=== PATIENT | female | born 1950 | race Caucasian/White ===

== ENCOUNTER 2016-08-07 10:06 | Inpatient (IN) | payer BC ==
[2016-08-07] MEDS ORDERED: SODIUM CHLORIDE 0.9% 500 ML IV STA ×2 (10:12→12:02)
[2016-08-07] MEDS ORDERED: SODIUM CHLORIDE 0.9% 1,000 ML IV STA ×3 (10:12→12:02)
--- NOTE | 2016-08-07 10:13 | ED ---
General Adult HPI - General Stated complaint: weakness Time Seen by Provider: 08/07/16 10:11 Source: RN notes reviewed, old records reviewed - History of Present Illness Initial comments: This is a 65-year-old female here for evaluation of altered mental status. Patient unable to give history or history at this time secondary to mental state. Patient's is at bedside to provide history, significant medical history is consistent for uterine cancer with metastasis. Patient coming in for altered mental status today. She is having continued abdominal pain. An incontinence. - Related Data Home Medications Medication Instructions Recorded Confirmed Morphine Oral Soln [Roxanol Oral 20 mg PO Q4HR PRN 08/07/16 08/07/16 Soln Conc 20MG/ML] Morphine Sulfate Ir [MSIR] 30 mg PO Q4HR PRN 08/07/16 08/07/16 fentaNYL 100MCG/HR PATCH 1 patch TRANSDERM Q72H 08/07/16 08/07/16 [Duragesic 100MCG/HR] fentaNYL 50MCG/HR PATCH [Duragesic 1 patch TRANSDERM Q72H 08/07/16 08/07/16 50MCG/HR] Allergies Allergy/AdvReac Type Severity Reaction Status Date / Time Penicillins Allergy Rash/Hives Verified 06/25/16 15:27 codeine AdvReac Nausea & Verified 06/25/16 15:27 Vomiting/dizzyness oxycodone AdvReac Hallucinati Verified 08/07/16 11:30 ons Review of Systems ROS Statement: Those systems with pertinent positive or pertinent negative responses have been documented in the HPI. ROS Other: All systems not noted in ROS Statement are negative. Past Medical History Past Medical History: Cancer, Fibromyalgia, Hyperlipidemia, Osteoarthritis (OA) Additional Past Medical History / Comment(s): FIBROMYALGIA, STAGE 4 ENDOMETRIAL( UTERINE) CANCER, HAD CHEMO-LAST TX WAS MAY 08,PT STATED "GOING TO START RADIATION SOON".PT STATED LOST 45-50# SINCE DECEMBER 2015. BRONCHITIS, BEGINNINGS OF CATARACTS History of Any Multi-Drug Resistant Organisms: None Reported Past Surgical History: Cholecystectomy, Tonsillectomy Additional Past Surgical History / Comment(s): COLONOSCOPY, HYSTEROSCOPY W/ D&C Past Anesthesia/Blood Transfusion Reactions: No Reported Reaction Past Psychological History: No Psychological Hx Reported Smoking Status: Former smoker Past Alcohol Use History: Occasional Additional Past Alcohol Use History / Comment(s): STATED WOULD HAVE AN OCC SOCIAL CIGARETTE, BUT QUIT 30 YEARS AGO Past Drug Use History: None Reported Additional Drug Use History / Comment(s): Pt states she occassionally would have social cigarette - Past Family History Mother Family Medical History: Deep Vein Thrombosis (DVT) Father Family Medical History: Cancer Additional Family Medical History / Comment(s): MELANOMA Brother(s) Family Medical History: Pulmonary Embolus General Exam Limitations: altered mental status General appearance: alert, in no apparent distress Head exam: Present: atraumatic, normocephalic, normal inspection Eye exam: Present: normal appearance, PERRL, EOMI. Absent: scleral icterus, conjunctival injection, periorbital swelling ENT exam: Present: mucous membranes dry Neck exam: Present: normal inspection. Absent: tenderness, meningismus, lymphadenopathy Respiratory exam: Present: normal lung sounds bilaterally. Absent: respiratory distress, wheezes, rales, rhonchi, stridor Cardiovascular Exam: Present: regular rate, normal rhythm, normal heart sounds. Absent: systolic murmur, diastolic murmur, rubs, gallop, clicks GI/Abdominal exam: Present: soft, normal bowel sounds. Absent: distended, tenderness, guarding, rebound, rigid Extremities exam: Present: normal inspection, full ROM, normal capillary refill. Absent: tenderness, pedal edema, joint swelling, calf tenderness Back exam: Present: normal inspection Neurological exam: Present: alert, oriented X3, CN II-XII intact Psychiatric exam: Present: normal affect, normal mood Skin exam: Present: warm, dry, intact, normal color. Absent: rash Course Vital Signs 08/07/16 10:09 Temperature 97.0 F L Respiratory 18 Rate Blood Pressure 123/58 O2 Sat by Pulse 91 L Oximetry - Reevaluation(s) Reevaluation #1: 08/07/16 12:27 Patient showing no critical improvement in mental state at this time EKG Findings - EKG Comments: EKG Findings:: EKG shows sinus rate of 93, TN 252, QRS 136, QTC 435 Medical Decision Making - Medical Decision Making 65 female with weakness and altered mental status. Patient is dehydrated, and suffered with the urinary tract infection. Patient be admitted for control throat infection IV antibiotics and rehydration resuscitation, electrolyte R replacement - Lab Data Result diagrams: 08/07/16 10:20 08/07/16 10:20 Lab Results 08/07/16 08/07/16 08/07/16 Range/Units 10:20 10:20 10:20 WBC 7.0 (3.8-10.6) k/uL RBC 2.32 L (3.80-5.40) m/uL Hgb 7.4 L (11.4-16.0) gm/dL Hct 22.3 L (34.0-46.0) % MCV 96.1 D (80.0-100.0) fL MCH 31.7 (25.0-35.0) pg MCHC 33.0 (31.0-37.0) g/dL RDW 18.3 H (11.5-15.5) % Plt Count 131 L D (150-450) k/uL Neutrophils % 89 % Lymphocytes % 3 % Monocytes % 6 % Eosinophils % 0 % Basophils % 0 % Neutrophils # 6.2 (1.3-7.7) k/uL Lymphocytes # 0.2 L (1.0-4.8) k/uL Monocytes # 0.5 (0-1.0) k/uL Eosinophils # 0.0 (0-0.7) k/uL Basophils # 0.0 (0-0.2) k/uL Hypochromasia Slight Poikilocytosis Slight Anisocytosis Slight Macrocytosis Slight PT (9.0-12.0) sec INR (<1.1) APTT (22.0-30.0) sec Sodium 133 L (137-145) mmol/L Potassium 3.2 L (3.5-5.1) mmol/L Chloride 93 L (98-107) mmol/L Carbon Dioxide 33 H (22-30) mmol/L Anion Gap 7 mmol/L BUN 12 (7-17) mg/dL Creatinine 0.57 (0.52-1.04) mg/dL Est GFR (MDRD) Af Amer >60 (>60 ml/min/1.73 sqM) Est GFR (MDRD) Non-Af >60 (>60 ml/min/1.73 sqM) Glucose 109 H (74-99) mg/dL POC Glucose (mg/dL) (75-99) mg/dL POC Glu Power Bender Operator ID Plasma Lactic Acid Cade 1.9 (0.7-2.0) mmol/L Calcium 11.8 H (8.4-10.2) mg/dL Phosphorus 2.4 L (2.5-4.5) mg/dL Magnesium 1.2 L (1.6-2.3) mg/dL Total Bilirubin 1.0 (0.2-1.3) mg/dL AST 41 H (14-36) U/L ALT 34 (9-52) U/L Alkaline Phosphatase 121 (38-126) U/L Ammonia (<30) umol/L Troponin I (0.000-0.034) ng/mL Total Protein 5.8 L (6.3-8.2) g/dL Albumin 2.7 L (3.5-5.0) g/dL Urine Color Urine Appearance (Clear) Urine pH (5.0-8.0) Ur Specific Phillips (1.001-1.035) Urine Protein (Negative) Urine Glucose (UA) (Negative) Urine Ketones (Negative) Urine Blood (Negative) Urine Nitrate (Negative) Urine Bilirubin (Negative) Urine Urobilinogen (<2.0) mg/dL Ur Leukocyte Esterase (Negative) Urine RBC (0-5) /hpf Urine WBC (0-5) /hpf Urine WBC Clumps (None) /hpf Ur Squamous Epith Cells (0-4) /hpf Urine Mucus (None) /hpf Influenza Type A RNA (Not Detectd) Influenza Type B (PCR) (Not Detectd) 08/07/16 08/07/16 08/07/16 Range/Units 10:20 10:20 10:20 WBC (3.8-10.6) k/uL RBC (3.80-5.40) m/uL Hgb (11.4-16.0) gm/dL Hct (34.0-46.0) % MCV (80.0-100.0) fL MCH (25.0-35.0) pg MCHC (31.0-37.0) g/dL RDW (11.5-15.5) % Plt Count (150-450) k/uL Neutrophils % % Lymphocytes % % Monocytes % % Eosinophils % % Basophils % % Neutrophils # (1.3-7.7) k/uL Lymphocytes # (1.0-4.8) k/uL Monocytes # (0-1.0) k/uL Eosinophils # (0-0.7) k/uL Basophils # (0-0.2) k/uL Hypochromasia Poikilocytosis Anisocytosis Macrocytosis PT 11.5 (9.0-12.0) sec INR 1.2 (<1.1) APTT 20.7 L (22.0-30.0) sec Sodium (137-145) mmol/L Potassium (3.5-5.1) mmol/L Chloride (98-107) mmol/L Carbon Dioxide (22-30) mmol/L Anion Gap mmol/L BUN (7-17) mg/dL Creatinine (0.52-1.04) mg/dL Est GFR (MDRD) Af Amer (>60 ml/min/1.73 sqM) Est GFR (MDRD) Non-Af (>60 ml/min/1.73 sqM) Glucose (74-99) mg/dL POC Glucose (mg/dL) (75-99) mg/dL POC Glu Power Bender Operator ID Plasma Lactic Acid Cade (0.7-2.0) mmol/L Calcium (8.4-10.2) mg/dL Phosphorus (2.5-4.5) mg/dL Magnesium (1.6-2.3) mg/dL Total Bilirubin (0.2-1.3) mg/dL AST (14-36) U/L ALT (9-52) U/L Alkaline Phosphatase (38-126) U/L Ammonia <9 (<30) umol/L Troponin I 0.073 H* (0.000-0.034) ng/mL Total Protein (6.3-8.2) g/dL Albumin (3.5-5.0) g/dL Urine Color Urine Appearance (Clear) Urine pH (5.0-8.0) Ur Specific Phillips (1.001-1.035) Urine Protein (Negative) Urine Glucose (UA) (Negative) Urine Ketones (Negative) Urine Blood (Negative) Urine Nitrate (Negative) Urine Bilirubin (Negative) Urine Urobilinogen (<2.0) mg/dL Ur Leukocyte Esterase (Negative) Urine RBC (0-5) /hpf Urine WBC (0-5) /hpf Urine WBC Clumps (None) /hpf Ur Squamous Epith Cells (0-4) /hpf Urine Mucus (None) /hpf Influenza Type A RNA (Not Detectd) Influenza Type B (PCR) (Not Detectd) 08/07/16 08/07/16 08/07/16 Range/Units 10:30 10:53 10:53 WBC (3.8-10.6) k/uL RBC (3.80-5.40) m/uL Hgb (11.4-16.0) gm/dL Hct (34.0-46.0) % MCV (80.0-100.0) fL MCH (25.0-35.0) pg MCHC (31.0-37.0) g/dL RDW (11.5-15.5) % Plt Count (150-450) k/uL Neutrophils % % Lymphocytes % % Monocytes % % Eosinophils % % Basophils % % Neutrophils # (1.3-7.7) k/uL Lymphocytes # (1.0-4.8) k/uL Monocytes # (0-1.0) k/uL Eosinophils # (0-0.7) k/uL Basophils # (0-0.2) k/uL Hypochromasia Poikilocytosis Anisocytosis Macrocytosis PT (9.0-12.0) sec INR (<1.1) APTT (22.0-30.0) sec Sodium (137-145) mmol/L Potassium (3.5-5.1) mmol/L Chloride (98-107) mmol/L Carbon Dioxide (22-30) mmol/L Anion Gap mmol/L BUN (7-17) mg/dL Creatinine (0.52-1.04) mg/dL Est GFR (MDRD) Af Amer (>60 ml/min/1.73 sqM) Est GFR (MDRD) Non-Af (>60 ml/min/1.73 sqM) Glucose (74-99) mg/dL POC Glucose (mg/dL) 118 H (75-99) mg/dL POC Glu Power Bender Operator ID Tammie Morris Plasma Lactic Acid Cade (0.7-2.0) mmol/L Calcium (8.4-10.2) mg/dL Phosphorus (2.5-4.5) mg/dL Magnesium (1.6-2.3) mg/dL Total Bilirubin (0.2-1.3) mg/dL AST (14-36) U/L ALT (9-52) U/L Alkaline Phosphatase (38-126) U/L Ammonia (<30) umol/L Troponin I (0.000-0.034) ng/mL Total Protein (6.3-8.2) g/dL Albumin (3.5-5.0) g/dL Urine Color Light Yellow Urine Appearance Cloudy H (Clear) Urine pH 6.5 (5.0-8.0) Ur Specific Phillips 1.006 (1.001-1.035) Urine Protein Negative (Negative) Urine Glucose (UA) Negative (Negative) Urine Ketones Negative (Negative) Urine Blood Trace H (Negative) Urine Nitrate Negative (Negative) Urine Bilirubin Negative (Negative) Urine Urobilinogen <2.0 (<2.0) mg/dL Ur Leukocyte Esterase Large H (Negative) Urine RBC 5 (0-5) /hpf Urine WBC >182 H (0-5) /hpf Urine WBC Clumps Rare H (None) /hpf Ur Squamous Epith Cells 6 H (0-4) /hpf Urine Mucus Rare H (None) /hpf Influenza Type A RNA Not Detected (Not Detectd) Influenza Type B (PCR) Not Detected (Not Detectd) - Radiology Data Radiology results: report reviewed (CT brain negative for acute disease, chest x -ray chronic changes, metastatic disease), image reviewed Disposition Clinical Impression: Altered mental status, Delirium due to general medical condition, Dehydration, UTI (urinary tract infection), Hypomagnesemia, Hypokalemia Disposition: ADMITTED IP TO THIS [facility] Condition: Fair Referrals: Nils Agrawal DO [Primary Care Provider] - 1-2 days
[2016-08-07 10:44] LABS: Glucose,Whole Blood 118 mg/dL (75-99)
[2016-08-07 11:07] LABS: ALT 34 U/L (9-52); AST 41 U/L (14-36); Alkaline Phosphatase 121 U/L (38-126); Anion Gap 7 mmol/L; Blood Urea Nitrogen 12 mg/dL (7-17); Calcium 11.8 mg/dL (8.4-10.2); Carbon Dioxide 33 mmol/L (22-30); Chloride 93 mmol/L (98-107); Glucose 109 mg/dL (74-99); Magnesium 1.2 mg/dL (1.6-2.3); Non-African American GFR(MDRD) >60 (>60 ml/min/1.73 sqM); Phosphorous 2.4 mg/dL (2.5-4.5); Potassium 3.2 mmol/L (3.5-5.1); Sodium 133 mmol/L (137-145); Total Protein 5.8 g/dL (6.3-8.2)
[2016-08-07 11:11] LABS: Anisocytosis Slight; Basophils % (A) 0 %; CH 32.4; CHCM 33.7; Eosinophils % (A) 0 %; HCT 22.3 % (34.0-46.0); HDW 3.82; HGB 7.4 gm/dL (11.4-16.0); Hypochromasia Slight; Luc # (Auto) 0.08; Luc % (Auto) 1; Lymphocytes # (A) 0.2 k/uL (1.0-4.8); Lymphocytes % (A) 3 %; MCH 31.7 pg (25.0-35.0); Macrocytosis Slight; Mean Platelet Volume 7.8; Monocytes # (A) 0.5 k/uL (0-1.0); Monocytes % (A) 6 %; Neutrophils # (A) 6.2 k/uL (1.3-7.7); Neutrophils % (A) 89 %; Poikilocytosis Slight; RBC 2.32 m/uL (3.80-5.40); RDW 18.3 % (11.5-15.5); WBC (Perox) 7.26
[2016-08-07 11:16] LABS: INR 1.2 (<1.1); Prothrombin Time 11.5 sec (9.0-12.0)
[2016-08-07 11:20] LABS: MCV 96.1 fL (80.0-100.0)
[2016-08-07 11:26] LABS: Appearance,Urine Cloudy (Clear); Bilirubin,Urine Negative (Negative); Glucose,Urine (UA) Negative (Negative); Ketones,Urine Negative (Negative); Leukocyte Esterase,Urine Large (Negative); Mucus,Urine Rare /hpf; Nitrite,Urine Negative (Negative); PH, Urine 6.5 (5.0-8.0); Particle Count 5982; Protein,Urine Negative (Negative); RBC,Urine 5 /hpf (0-5); Specific Gravity,Urine 1.006 (1.001-1.035); Squamous Epithelial Cell,Urine 6 /hpf (0-4); UA Billing (MACRO vs. MICRO) MICRO; Urobilinogen,Urine <2.0 mg/dL (<2.0); WBC,Urine >182 /hpf (0-5)
[2016-08-07 11:36] LABS: Partial Thromboplastin Time 20.7 sec (22.0-30.0)
--- NOTE | 2016-08-07 11:56 | CT ---
EXAMINATION TYPE: CT brain wo con DATE OF EXAM: 08/07/2016 11:50 AM COMPARISON: NONE HISTORY: confusion CT DLP: 851.3 mGycm Automated exposure control for dose reduction was used. FINDINGS: There is no acute intracranial hemorrhage, mass effect, or midline shift identified. Changes of chronic sinusitis noted. There is mild to moderate generalized degenerative change. No mid line shift or mass effect. Calvarium intact. Small osteoma along the inner table left temporal bone. IMPRESSION: No acute intracranial hemorrhage, mass effect, or midline shift is seen. Degenerative change.
[2016-08-07] MEDS ORDERED: cefTRIAXone 2,000 MG in SODIUM CHLORIDE 0.9% 100 ML IVPB STA (12:00)
[2016-08-07] MEDS ORDERED: POTASSIUM BICARB-CITRIC ACID 25 MEQ TABLET.EFF PO STA (12:00)
[2016-08-07] MEDS ORDERED: MAGNESIUM OXIDE 400 MG TAB PO STA (12:03)
--- NOTE | 2016-08-07 12:11 | XR ---
EXAMINATION TYPE: XR chest 2V DATE OF EXAM: 08/07/2016 12:01 PM COMPARISON: Prior chest CT January 2016 HISTORY: Metastatic disease, weakness and ovarian carcinoma TECHNIQUE: Frontal and lateral views of the chest are obtained. FINDINGS: There are too numerous to count bilateral soft tissue nodules within the lungs which has p rogressed in the interval. No pneumothorax or evident effusion. Cardiomediastinal silhouette pulmonar y vascularity and laverne within normal limits. IMPRESSION: Progression of metastatic disease
[2016-08-07] MEDS: MAGNESIUM SULFATE-D5W PMX 1 GM in DEXTROSE/WATER 1 100ML.BAG IVPB SCH ×4 (14:39→18:34)
[2016-08-07] MEDS: POTASSIUM CHLORIDE 10 MEQ, LIDOCAINE 2% INJ 10 MG in SODIUM CHLORIDE 0.9% 100 ML IVPB SCH ×2 (15:25→17:01)
[2016-08-07 17:08] LABS: Anisocytosis Slight; Basophils % (A) 0 %; CH 32.4; CHCM 32.9; Eosinophils % (A) 0 %; HCT 20.5 % (34.0-46.0); HDW 3.69; Hypochromasia Slight; Luc # (Auto) 0.05; Luc % (Auto) 1; Lymphocytes # (A) 0.1 k/uL (1.0-4.8); Lymphocytes % (A) 2 %; MCH 32.8 pg (25.0-35.0); MCHC 33.2 g/dL (31.0-37.0); MCV 98.7 fL (80.0-100.0); Macrocytosis Slight; Mean Platelet Volume 8.4; Monocytes # (A) 0.4 k/uL (0-1.0); Monocytes % (A) 6 %; Neutrophils # (A) 5.8 k/uL (1.3-7.7); Neutrophils % (A) 92 %; Poikilocytosis Slight; RBC 2.08 m/uL (3.80-5.40); RDW 18.2 % (11.5-15.5); WBC 6.4 k/uL (3.8-10.6); WBC (Perox) 6.33
[2016-08-07 17:17] LABS: HGB 6.8 gm/dL (11.4-16.0)
[2016-08-07 17:26] LABS: Anion Gap 5 mmol/L; Blood Urea Nitrogen 10 mg/dL (7-17); Calcium 11.4 mg/dL (8.4-10.2); Carbon Dioxide 31 mmol/L (22-30); Chloride 99 mmol/L (98-107); Glucose 107 mg/dL (74-99); Non-African American GFR(MDRD) >60 (>60 ml/min/1.73 sqM); Potassium 3.7 mmol/L (3.5-5.1); Sodium 135 mmol/L (137-145)
[2016-08-07] MEDS: MORPHINE SULFATE IR 15 MG TABLET PO PRN (18:26)
[2016-08-07 20:39] LABS: Creatine Kinase <20 U/L (30-135)
[2016-08-07 20:49] LABS: Creatine Kinase MB <0.2 ng/mL (0.0-2.4)
[2016-08-08] MEDS: MORPHINE SULFATE IR 15 MG TABLET PO PRN ×5 (04:08→22:13)
[2016-08-08 06:44] LABS: Anisocytosis Slight; Basophils % (A) 0 %; CH 31.9; CHCM 32.4; Eosinophils % (A) 1 %; HCT 32.9 % (34.0-46.0); HDW 3.66; Hypochromasia Slight; Luc # (Auto) 0.06; Luc % (Auto) 1; Lymphocytes # (A) 0.1 k/uL (1.0-4.8); Lymphocytes % (A) 1 %; MCH 31.6 pg (25.0-35.0); MCHC 31.9 g/dL (31.0-37.0); Macrocytosis Slight; Mean Platelet Volume 7.8; Monocytes # (A) 0.4 k/uL (0-1.0); Monocytes % (A) 6 %; Neutrophils # (A) 6.9 k/uL (1.3-7.7); Neutrophils % (A) 91 %; Poikilocytosis Slight; RBC 3.33 m/uL (3.80-5.40); RDW 16.7 % (11.5-15.5); WBC 7.5 k/uL (3.8-10.6); WBC (Perox) 8.03
[2016-08-08 06:47] LABS: HGB 10.5 gm/dL (11.4-16.0)
[2016-08-08 06:56] LABS: ALT 29 U/L (9-52); AST 43 U/L (14-36); Alkaline Phosphatase 117 U/L (38-126); Anion Gap 10 mmol/L; Blood Urea Nitrogen 9 mg/dL (7-17); Calcium 11.9 mg/dL (8.4-10.2); Carbon Dioxide 28 mmol/L (22-30); Chloride 100 mmol/L (98-107); Glucose 108 mg/dL (74-99); Magnesium 1.7 mg/dL (1.6-2.3); Non-African American GFR(MDRD) >60 (>60 ml/min/1.73 sqM); Phosphorous 2.1 mg/dL (2.5-4.5); Potassium 3.5 mmol/L (3.5-5.1); Sodium 138 mmol/L (137-145); Total Bilirubin 1.7 mg/dL (0.2-1.3); Total Protein 5.8 g/dL (6.3-8.2)
[2016-08-08] MEDS: PANTOPRAZOLE 40 MG/10 ML VIAL IVP SCH (07:32)
[2016-08-08] MEDS: ENOXAPARIN 40 MG/0.4 ML SYRINGE SQ SCH (07:33)
[2016-08-08] MEDS ORDERED: Phosphorus Replacement Protoco 1 EACH MISC MISCELLANE PRN (08:47)
[2016-08-08] MEDS ORDERED: Potassium Replacement Protocol 1 EACH MISC MISCELLANE PRN (08:48)
[2016-08-08] MEDS ORDERED: Magnesium Replacement Protocol 1 EACH MISC MISCELLANE PRN (08:48)
--- NOTE | 2016-08-08 09:14 | P.CRDCN ---
<Frances Delatorre E - Last Filed: 08/08/16 09:03> History of Present Illness Consult date: 08/08/16 Requesting physician: Nils Agrawal Reason for Consult (text): Abnormal troponin Chief complaint: Mental status changes History of present illness: This is a 65-year-old female with medical history significant for stage for uterine cancer, fibromyalgia, hyperlipidemia, prior DVT, osteoarthritis. She presented to the hospital on this occasion with the mental status changes. Troponins were drawn in the emergency room which came back to be abnormal and for this reason a cardiology consultation was requested. Chest x-ray on admission revealed progression of metastatic disease. CAT scan of the brain did not reveal any acute intracranial hemorrhage, mass effect, or midline shift. EKG on admission showed a sinus tachycardia with no acute changes. Hemoglobin on admission 7.4, subsequent hemoglobin 6.8, he received 2 units of packed red blood cells, hemoglobin this morning 10.5. Sodium 138, potassium 3.5 , BUN 9, creatinine 0.4. Magnesium level I.2 on admission, 1.7 this morning. Positive UTI. Influenza A&B negative Troponins 0.073, 0.062, 0.051. Patient denies having any chest discomfort, does complain of abdominal discomfort this morning. Past Medical History Past Medical History: Cancer, Deep Vein Thrombosis (DVT), Eye Disorder, Fibromyalgia, Hyperlipidemia, Osteoarthritis (OA) Additional Past Medical History / Comment(s): STAGE 4 ENDOMETRIAL (UTERINE) CANCER, HAD CHEMO-and recently started radiation, PT STATED LOST 45-50# SINCE DECEMBER 2015, fibromyalgia, DVT L leg, BRONCHITIS, BEGINNINGS OF CATARACTS History of Any Multi-Drug Resistant Organisms: None Reported Past Surgical History: Cholecystectomy, Tonsillectomy Additional Past Surgical History / Comment(s): COLONOSCOPY, Past Anesthesia/Blood Transfusion Reactions: No Reported Reaction Past Psychological History: No Psychological Hx Reported Additional Psychological History / Comment(s): Pt resides with her spouse. She uses a cane or walker to ambulate. She no longer drives, her spouse does. She has friends who come to her home and assist her. Smoking Status: Former smoker Past Alcohol Use History: Occasional Additional Past Alcohol Use History / Comment(s): STATED WOULD HAVE AN OCC SOCIAL CIGARETTE, BUT QUIT 30 YEARS AGO Past Drug Use History: None Reported Additional Drug Use History / Comment(s): Pt states she occassionally would have social cigarette - Past Family History Mother Family Medical History: Deep Vein Thrombosis (DVT) Father Family Medical History: Cancer Additional Family Medical History / Comment(s): MELANOMA Brother(s) Family Medical History: Pulmonary Embolus Medications and Allergies Home Medications Medication Instructions Recorded Confirmed Type Morphine Oral Soln [Roxanol Oral 20 mg PO Q4HR PRN 08/07/16 08/07/16 History Soln Conc 20MG/ML] Morphine Sulfate Ir [MSIR] 30 mg PO Q4HR PRN 08/07/16 08/07/16 History fentaNYL 100MCG/HR PATCH 1 patch TRANSDERM Q72H 08/07/16 08/07/16 History [Duragesic 100MCG/HR] fentaNYL 50MCG/HR PATCH [Duragesic 1 patch TRANSDERM Q72H 08/07/16 08/07/16 History 50MCG/HR] Allergies Allergy/AdvReac Type Severity Reaction Status Date / Time Penicillins Allergy Rash/Hives Verified 08/07/16 12:56 codeine AdvReac Nausea & Verified 08/07/16 12:56 Vomiting/dizzyness oxycodone AdvReac Hallucinati Verified 08/07/16 12:56 ons Physical Exam Vitals: Vital Signs Temp Pulse Pulse Resp BP BP Pulse Ox 08/08/16 08:00 97.7 F 95 18 132/74 93 L 08/08/16 04:00 96 18 08/08/16 03:02 97.3 F L 83 18 148/70 95 08/08/16 02:32 97.3 F L 96 18 151/57 97 08/08/16 02:22 97.4 F L 92 18 150/70 93 L 08/08/16 02:12 98.1 F 91 18 148/68 94 L 08/08/16 00:00 89 18 08/07/16 23:40 97.5 F L 89 18 132/61 94 L 08/07/16 23:10 85 18 124/59 94 L 08/07/16 23:00 97.7 F 96 18 128/61 97 08/07/16 22:42 97.7 F 86 18 121/60 94 L 08/07/16 20:00 97.4 F L 84 18 123/61 93 L 08/07/16 16:00 98.2 F 98 20 122/58 97 08/07/16 13:32 97.1 F L 100 20 132/60 100 Intake and Output 08/07/16 08/08/16 08/08/16 22:59 06:59 14:59 Intake Total 661 694 3575 Output Total 750 950 200 Balance -300 -390 1560 Intake: IV 150 1200 Sodium Chloride 0.9% 1, 150 1200 000 ml @ 100 mls/hr IV . Q10H [facility] Rx#:[id number] Intake, IV Titration 100 Amount Magnesium Sulfate-D5w Pmx 100 1 gm In Dextrose/Water 1 100ml.bag @ 100 mls/hr IVPB Q1H [facility] Rx#: [id number] Oral 200 Blood Product 0 560 560 Rc As-1 Unit 310 [id number] Rc Cpda-1 Unit 0 250 [id number] Output: Urine 750 950 200 Other: Voiding Method Bedpan Bedpan Bedpan # Voids 1 1 1 Weight 72.121 kg 78 kg 78 kg Patient Weight 08/09/16 06:59 Weight 78 kg PHYSICAL EXAMINATION: HEENT: Head is atraumatic, normocephalic. Pupils equal, round. Neck is supple. There is no elevated jugular venous pressure. HEART EXAMINATION: Heart S1, S2 normal. No murmur or gallop heard. CHEST EXAMINATION: Lungs are clear to auscultation and precussion. No chest wall tenderness is noted on palpation or with deep breathing. ABDOMEN: Soft, positive generalized tenderness on palpation. nontender. Bowel sounds are heard. No organomegaly noted. EXTREMITIES: 2+ peripheral pulses with no evidence of peripheral edema and no calf tenderness noted. NEUROLOGIC patient is awake, alert and oriented -3. . Results 08/08/16 05:48 08/08/16 05:48 Cardiac Enzymes 08/07/16 08/07/16 08/08/16 Range/Units 16:39 22:55 05:48 AST 43 H (14-36) U/L Troponin I 0.062 H* 0.051 H* (0.000-0.034) ng/mL CBC 08/07/16 08/08/16 Range/Units 16:39 05:48 WBC 6.4 7.5 (3.8-10.6) k/uL RBC 2.08 L 3.33 L (3.80-5.40) m/uL Hgb 6.8 L* 10.5 L D (11.4-16.0) gm/dL Hct 20.5 L 32.9 L (34.0-46.0) % Plt Count 120 L 105 L (150-450) k/uL Comprehensive Metabolic Panel 08/07/16 08/08/16 Range/Units 16:39 05:48 Sodium 135 L 138 (137-145) mmol/L Potassium 3.7 3.5 (3.5-5.1) mmol/L Chloride 99 100 (98-107) mmol/L Carbon Dioxide 31 H 28 (22-30) mmol/L BUN 10 9 (7-17) mg/dL Creatinine 0.49 L 0.48 L (0.52-1.04) mg/dL Glucose 107 H 108 H (74-99) mg/dL Calcium 11.4 H 11.9 H (8.4-10.2) mg/dL AST 43 H (14-36) U/L ALT 29 (9-52) U/L Alkaline Phosphatase 117 (38-126) U/L Total Protein 5.8 L (6.3-8.2) g/dL Albumin 2.8 L (3.5-5.0) g/dL Current Medications Generic Name Dose Route Start Last Admin Trade Name Roddyq PRN Reason Stop Dose Admin Enoxaparin Sodium 40 mg 08/08/16 09:00 08/08/16 07:33 Lovenox SQ 40 mg DAILY [facility] Administration Fentanyl 1 patch 08/07/16 16:00 08/07/16 17:19 Duragesic 100mcg/Hr Patch TRANSDERM 1 patch Q72H [facility] Administration Fentanyl 1 patch 08/07/16 16:00 08/07/16 17:19 Duragesic 50mcg/Hr Patch TRANSDERM 1 patch Q72H [facility] Administration Ceftriaxone Sodium 1,000 mg/ 50 mls @ 100 mls/hr 08/08/16 13:30 Sodium Chloride IVPB Q24H [facility] Magnesium Sulfate/Dextrose 1 100 mls @ 100 mls/hr 08/08/16 10:00 gm/ IV Solution IVPB 08/08/16 11:59 Q1H [facility] Sodium Phosphate 10 mmol/ 253.3333 mls @ 125 mls/hr 08/08/16 10:00 Sodium Chloride IVPB 08/08/16 12:01 ONCE ONE Miscellaneous Information 1 each 08/08/16 08:48 Magnesium Per Protocol MISCELLANE DAILY PRN Per Protocol Protocol Miscellaneous Information 1 each 08/08/16 08:47 Phosphorus Per Protocol MISCELLANE DAILY PRN Per Protocol Protocol Miscellaneous Information 1 each 08/08/16 08:48 Potassium Per Protocol MISCELLANE DAILY PRN Per Protocol Protocol Morphine Sulfate 30 mg 08/07/16 15:50 08/08/16 07:33 Msir PO 30 mg Q4HR PRN Administration Breakthrough Pain Pantoprazole Sodium 40 mg 08/08/16 09:00 08/08/16 07:32 Protonix IVP 40 mg DAILY ROSY Administration Potassium Chloride 20 meq 08/08/16 09:00 K-Dur 20 PO 08/08/16 10:01 Q1HR [facility] Intake and Output 08/07/16 08/08/16 08/08/16 22:59 06:59 14:59 Intake Total 924 595 2279 Output Total 750 950 200 Balance -300 -390 1560 Intake: IV 150 1200 Sodium Chloride 0.9% 1, 150 1200 000 ml @ 100 mls/hr IV . Q10H [facility] Rx#:[id number] Intake, IV Titration 100 Amount Magnesium Sulfate-D5w Pmx 100 1 gm In Dextrose/Water 1 100ml.bag @ 100 mls/hr IVPB Q1H [facility] Rx#: [id number] Oral 200 Blood Product 0 560 560 Rc As-1 Unit 310 [id number] Rc Cpda-1 Unit 0 250 [id number] Output: Urine 750 950 200 Other: Voiding Method Bedpan Bedpan Bedpan # Voids 1 1 1 Weight 72.121 kg 78 kg 78 kg Patient Weight 08/09/16 06:59 Weight 78 kg 08/08/16 05:48 08/08/16 05:48 EKG Interpretations (text) EKG shows a sinus tachycardia with no acute changes. Assessment and Plan Plan: Assessment and plan #1 mental status changes with known uterine cancer with metastases. #2 anemia, status post blood transfusion 2. #3 abnormal troponins, not consistent with acute coronary syndrome, likely secondary to oxygen supply and demand mismatch. #4 abdominal pain #5 hyperlipidemia #6 history of prior DVT Plan We will obtain an echocardiogram with Doppler study. Patient's elevated troponins were not consistent with acute coronary syndrome. If echo is normal we will follow this patient with you now on an as-needed basis only, least on hesitate call 7 with any questions. DNP note has been reviewed, I agree with a documented findings and plan of care. Patient was seen and examined. <Lul Oden - Last Filed: 08/08/16 14:00> Physical Exam Vitals: Vital Signs Temp Pulse Pulse Resp BP BP Pulse Ox 08/08/16 08:00 97.7 F 95 18 132/74 93 L 08/08/16 04:00 96 18 08/08/16 03:02 97.3 F L 83 18 148/70 95 08/08/16 02:32 97.3 F L 96 18 151/57 97 08/08/16 02:22 97.4 F L 92 18 150/70 93 L 08/08/16 02:12 98.1 F 91 18 148/68 94 L 08/08/16 00:00 89 18 08/07/16 23:40 97.5 F L 89 18 132/61 94 L 08/07/16 23:10 85 18 124/59 94 L 08/07/16 23:00 97.7 F 96 18 128/61 97 08/07/16 22:42 97.7 F 86 18 121/60 94 L 08/07/16 20:00 97.4 F L 84 18 123/61 93 L 08/07/16 16:00 98.2 F 98 20 122/58 97 Intake and Output 08/07/16 08/08/16 08/08/16 22:59 06:59 14:59 Intake Total 336 939 7235 Output Total 750 950 600 Balance -300 -390 1160 Intake: IV 150 1200 Sodium Chloride 0.9% 1, 150 1200 000 ml @ 100 mls/hr IV . Q10H [facility] Rx#:[id number] Intake, IV Titration 100 Amount Magnesium Sulfate-D5w Pmx 100 1 gm In Dextrose/Water 1 100ml.bag @ 100 mls/hr IVPB Q1H [facility] Rx#: [id number] Oral 200 Blood Product 0 560 560 Rc As-1 Unit 310 [id number] Rc Cpda-1 Unit 0 250 [id number] Output: Urine 750 950 600 Other: Voiding Method Bedpan Bedpan Bedpan # Voids 1 1 2 Weight 72.121 kg 78 kg 78 kg Patient Weight 08/09/16 06:59 Weight 78 kg Results 08/08/16 05:48 08/08/16 05:48 Cardiac Enzymes 08/07/16 08/07/16 08/08/16 Range/Units 16:39 22:55 05:48 AST 43 H (14-36) U/L Troponin I 0.062 H* 0.051 H* (0.000-0.034) ng/mL CBC 08/07/16 08/08/16 Range/Units 16:39 05:48 WBC 6.4 7.5 (3.8-10.6) k/uL RBC 2.08 L 3.33 L (3.80-5.40) m/uL Hgb 6.8 L* 10.5 L D (11.4-16.0) gm/dL Hct 20.5 L 32.9 L (34.0-46.0) % Plt Count 120 L 105 L (150-450) k/uL Comprehensive Metabolic Panel 08/07/16 08/08/16 Range/Units 16:39 05:48 Sodium 135 L 138 (137-145) mmol/L Potassium 3.7 3.5 (3.5-5.1) mmol/L Chloride 99 100 (98-107) mmol/L Carbon Dioxide 31 H 28 (22-30) mmol/L BUN 10 9 (7-17) mg/dL Creatinine 0.49 L 0.48 L (0.52-1.04) mg/dL Glucose 107 H 108 H (74-99) mg/dL Calcium 11.4 H 11.9 H (8.4-10.2) mg/dL AST 43 H (14-36) U/L ALT 29 (9-52) U/L Alkaline Phosphatase 117 (38-126) U/L Total Protein 5.8 L (6.3-8.2) g/dL Albumin 2.8 L (3.5-5.0) g/dL Current Medications Generic Name Dose Route Start Last Admin Trade Name Freq PRN Reason Stop Dose Admin Enoxaparin Sodium 40 mg 08/08/16 09:00 08/08/16 07:33 Lovenox SQ 40 mg DAILY [facility] Administration Fentanyl 1 patch 08/07/16 16:00 08/07/16 17:19 Duragesic 100mcg/Hr Patch TRANSDERM 1 patch Q72H [facility] Administration Fentanyl 1 patch 08/07/16 16:00 08/07/16 17:19 Duragesic 50mcg/Hr Patch TRANSDERM 1 patch Q72H [facility] Administration Ceftriaxone Sodium 1,000 mg/ 50 mls @ 100 mls/hr 08/08/16 13:30 08/08/16 13: 56 Sodium Chloride IVPB 100 mls/hr Q24H [facility] Administration Miscellaneous Information 1 each 08/08/16 08:48 Magnesium Per Protocol MISCELLANE DAILY PRN Per Protocol Protocol Miscellaneous Information 1 each 08/08/16 08:47 Phosphorus Per Protocol MISCELLANE DAILY PRN Per Protocol Protocol Miscellaneous Information 1 each 08/08/16 08:48 Potassium Per Protocol MISCELLANE DAILY PRN Per Protocol Protocol Morphine Sulfate 30 mg 08/07/16 15:50 08/08/16 12:11 Msir PO 30 mg Q4HR PRN Administration Breakthrough Pain Pantoprazole Sodium 40 mg 08/08/16 09:00 08/08/16 07:32 Protonix IVP 40 mg DAILY [facility] Administration Intake and Output 08/07/16 08/08/16 08/08/16 22:59 06:59 14:59 Intake Total 034 131 1138 Output Total 750 950 600 Balance -300 -390 1160 Intake: IV 150 1200 Sodium Chloride 0.9% 1, 150 1200 000 ml @ 100 mls/hr IV . Q10H [facility] Rx#:[id number] Intake, IV Titration 100 Amount Magnesium Sulfate-D5w Pmx 100 1 gm In Dextrose/Water 1 100ml.bag @ 100 mls/hr IVPB Q1H [facility] Rx#: [id number] Oral 200 Blood Product 0 560 560 Rc As-1 Unit 310 [id number] Rc Cpda-1 Unit 0 250 [id number] Output: Urine 750 950 600 Other: Voiding Method Bedpan Bedpan Bedpan # Voids 1 1 2 Weight 72.121 kg 78 kg 78 kg Patient Weight 08/09/16 06:59 Weight 78 kg 08/08/16 05:48 08/08/16 05:48
[2016-08-08] MEDS: POTASSIUM CHLORIDE ER 20 MEQ TAB.ER PO SCH (09:28)
[2016-08-08] MEDS: MAGNESIUM SULFATE-D5W PMX 1 GM in DEXTROSE/WATER 1 100ML.BAG IVPB SCH ×2 (09:28→10:50)
[2016-08-08 09:36] VITALS: BMI 28.6
[2016-08-08] MEDS ORDERED: SODIUM PHOSPHATE 10 MMOL in SODIUM CHLORIDE 0.9% 250 ML IVPB ONE (10:00)
--- NOTE | 2016-08-08 10:33 | ECHOF ---
Referral Reason:abn trop MEASUREMENTS -------- HEIGHT: 170.2 cm WEIGHT: 77.6 kg BP: 132/74 IVSd: 1.3 cm (0.6 - 1.1) LVIDd: 3.3 cm (3.9 - 5.3) LVPWd: 1.1 cm (0.6 - 1.1) IVSs: 1.4 cm LVIDs: 2.4 cm LVPWs: 1.0 cm Ao Diam: 3.0 cm (2.0 - 3.7) AV Cusp: 2.3 cm (1.5 - 2.6) LA Diam: 2.4 cm (2.7 - 3.8) MV EXCURSION: 13.970 mm (> 18.000) MV EF SLOPE: 62 mm/s (70 - 150) EPSS: 0.3 cm MV E Kulwinder: 0.68 m/s MV DecT: 229 ms MV A Kulwinder: 0.74 m/s MV E/A Ratio: 0.91 RAP: 5.00 mmHg RVSP: 46.47 mmHg FINDINGS -------- Sinus rhythm. This was a technically adequate study. There is mild concentric left ventricular hypertrophy. Overall left ventricular systolic function is low-normal with, an EF between 50 - 55 %. The right ventricle is normal in size. The left atrial size is normal. The right atrial size is normal. There is mild aortic valve sclerosis. There is no evidence of aortic regurgitation. Mild mitral annular calcification present. Mild mitral regurgitation is present. Mild tricuspid regurgitation present. There is mild pulmonary hypertension. The right ventricular systolic pressure, as measured by Doppler, is 46.47mmHg. There is no pulmonic regurgitation present. The aortic root size is normal. There is no pericardial effusion. CONCLUSIONS -------- 1. There is mild concentric left ventricular hypertrophy. 2. Overall left ventricular systolic function is low-normal with, an EF between 50 - 55 %. 3. There is mild aortic valve sclerosis. 4. Mild mitral annular calcification present. 5. Mild mitral regurgitation is present. 6. Mild tricuspid regurgitation present. 7. There is mild pulmonary hypertension. 8. The right ventricular systolic pressure, as measured by Doppler, is 46.47mmHg. DI[employer]OND DRILLER HELPER: Shannon Easley RDCS
--- NOTE | 2016-08-08 11:47 | P.HPIM ---
History of Present Illness H&P Date: 08/08/16 Chief Complaint: Weakness Patient is a 65-year-old female, patient of Dr. Nils Agrawal in the outpatient setting and Dr. Camejo at [facility], with medical history significant for stage IV endometrioid carcinoma with metastasis, anemia , fibromyalgia, hyperlipidemia, DVT, and osteoarthritis. Patient presented to the emergency department with complaints of generalized weakness and altered mental status. Chest x-ray in the emergency department with evidence of numerous bilateral soft tissue nodules within the lungs suggestive of progression of metastatic disease. CAT scan of the brain with no acute intracranial hemorrhage, mass effect, or midline shift. EKG sinus tachycardia with heart rate of 102, nonspecific T-wave abnormality. Labs on admission with evidence of anemia with hemoglobin of 7.4, thrombocytopenia with platelet count of 131, electrolyte imbalance with potassium of 3.2, phosphorus of 2.4, and magnesium of 1.2. Patient also had elevated troponins at 0.073 and 0.051. Urinalysis suggestive of urinary tract infection with large amount of leukocyte esterase and greater than 182 WBC. In the emergency department patient was fluid resuscitated with 3 L of normal saline, and started on IV antibiotics in the form of ceftriaxone for suspected urinary tract infection. Patient was admitted to the selective care unit for further monitoring consult requested for cardiology service and oncology service. Repeat hemoglobin after fluid resuscitation 6.8, patient did receive 2 units of PRBC. Upon examination, patient reports that she is been more forgetful and have been falling more frequently at home. Patient reports decreased oral intake at home. Patient states she's been more nauseated and had episodes of vomiting at home. Patient reports chronic lower abdominal pain but states it's usually controlled with fentanyl patches. Apparently patient rates abdominal pain 8 out of 10. Patient reports chills. No history of fevers. No history of shortness of breath or chest pain. Patient denies diarrhea or constipation. Patient denies new rashes or lesions. Patient denies dysuria, urgency, or hematuria. No history of melena, hematochezia, or hematemesis. Patient reports that she didn't see Dr. Camejo after she was discharged from her previous hospitalization in June. A.m. labs reveals improved hemoglobin of 10.5, decreased platelet count of 105, phosphorus of 2.1, magnesium 1.7, total protein of 5.8, and albumin of 2.8. Patient is afebrile. Hemodynamically stable. Nurse reports that patient has been too weak to get out of bed and has used a bedpan to urinate. Past Medical History Past Medical History: Cancer, Deep Vein Thrombosis (DVT), Eye Disorder, Fibromyalgia, Hyperlipidemia, Osteoarthritis (OA) Additional Past Medical History / Comment(s): STAGE 4 ENDOMETRIAL (UTERINE) CANCER, HAD CHEMO-and recently started radiation, PT STATED LOST 45-50# SINCE DECEMBER 2015, fibromyalgia, DVT L leg, BRONCHITIS, BEGINNINGS OF CATARACTS History of Any Multi-Drug Resistant Organisms: None Reported Past Surgical History: Cholecystectomy, Tonsillectomy Additional Past Surgical History / Comment(s): COLONOSCOPY, Past Anesthesia/Blood Transfusion Reactions: No Reported Reaction Past Psychological History: No Psychological Hx Reported Additional Psychological History / Comment(s): Pt resides with her spouse. She uses a cane or walker to ambulate. She no longer drives, her spouse does. She has friends who come to her home and assist her. Smoking Status: Former smoker Past Alcohol Use History: Occasional Additional Past Alcohol Use History / Comment(s): STATED WOULD HAVE AN OCC SOCIAL CIGARETTE, BUT QUIT 30 YEARS AGO Past Drug Use History: None Reported Additional Drug Use History / Comment(s): Pt states she occassionally would have social cigarette - Past Family History Mother Family Medical History: Deep Vein Thrombosis (DVT) Father Family Medical History: Cancer Additional Family Medical History / Comment(s): MELANOMA Brother(s) Family Medical History: Pulmonary Embolus Medications and Allergies Home Medications Medication Instructions Recorded Confirmed Type Morphine Oral Soln [Roxanol Oral 20 mg PO Q4HR PRN 08/07/16 08/07/16 History Soln Conc 20MG/ML] Morphine Sulfate Ir [MSIR] 30 mg PO Q4HR PRN 08/07/16 08/07/16 History fentaNYL 100MCG/HR PATCH 1 patch TRANSDERM Q72H 08/07/16 08/07/16 History [Duragesic 100MCG/HR] fentaNYL 50MCG/HR PATCH [Duragesic 1 patch TRANSDERM Q72H 08/07/16 08/07/16 History 50MCG/HR] Allergies Allergy/AdvReac Type Severity Reaction Status Date / Time Penicillins Allergy Rash/Hives Verified 08/07/16 12:56 codeine AdvReac Nausea & Verified 08/07/16 12:56 Vomiting/dizzyness oxycodone AdvReac Hallucinati Verified 08/07/16 12:56 ons Physical Exam Vitals: Vital Signs Temp Pulse Pulse Resp BP BP Pulse Ox 08/08/16 08:00 97.7 F 95 18 132/74 93 L 08/08/16 04:00 96 18 08/08/16 03:02 97.3 F L 83 18 148/70 95 08/08/16 02:32 97.3 F L 96 18 151/57 97 08/08/16 02:22 97.4 F L 92 18 150/70 93 L 08/08/16 02:12 98.1 F 91 18 148/68 94 L 08/08/16 00:00 89 18 08/07/16 23:40 97.5 F L 89 18 132/61 94 L 08/07/16 23:10 85 18 124/59 94 L 08/07/16 23:00 97.7 F 96 18 128/61 97 08/07/16 22:42 97.7 F 86 18 121/60 94 L 08/07/16 20:00 97.4 F L 84 18 123/61 93 L 08/07/16 16:00 98.2 F 98 20 122/58 97 08/07/16 13:32 97.1 F L 100 20 132/60 100 Intake and Output 08/07/16 08/08/16 08/08/16 22:59 06:59 14:59 Intake Total 467 637 8211 Output Total 750 950 600 Balance -300 -390 1160 Intake: IV 150 1200 Sodium Chloride 0.9% 1, 150 1200 000 ml @ 100 mls/hr IV . Q10H STA Rx#:[id number] Intake, IV Titration 100 Amount Magnesium Sulfate-D5w Pmx 100 1 gm In Dextrose/Water 1 100ml.bag @ 100 mls/hr IVPB Q1H ROSY Rx#: [id number] Oral 200 Blood Product 0 560 560 Rc As-1 Unit 310 [id number] Rc Cpda-1 Unit 0 250 [id number] Output: Urine 750 950 600 Other: Voiding Method Bedpan Bedpan Bedpan # Voids 1 1 2 Weight 72.121 kg 78 kg 78 kg Patient Weight 08/09/16 06:59 Weight 78 kg GENERAL: Pt awake and alert, lying in bed, appears in no acute distress. HEAD: Normocephalic. EYES: Pupils equal, round, and reactive to light, extraocular movements intact, sclera anicteric, conjunctiva are normal. ENT: Dry mucous membranes. NECK:Normal range of motion, supple without lymphadenopathy or JVD. LUNGS: Breath sounds clear to auscultation bilaterally. No wheezes, rales, or rhonchi. HEART: Heart S1, S2, no S3 or S4, regular rate and rhythm, no murmurs, rubs or gallops. ABDOMEN: Soft, moderate suprapubic tenderness, normoactive bowel sounds. No guarding, no rebound. No masses or organomegaly appreciated. EXTREMITIES: 2+ peripheral pulses, no edema to bilateral lower extremities. No calf tenderness. NEUROLOGICAL: Pt oriented x 3. Cranial nerves II through XII grossly intact. Decreased strength to upper and lower extremities. PSYCH: Normal mood, normal affect. SKIN: Warm, dry, intact. Normal turgor. No rashes or lesions. Results CBC & Chem 7: 08/08/16 05:48 08/08/16 05:48 Labs: Abnormal Lab Results - Last 24 Hours (Table) 08/07/16 08/07/16 08/07/16 Range/Units 16:39 16:39 16:39 RBC 2.08 L (3.80-5.40) m/uL Hgb 6.8 L* (11.4-16.0) gm/dL Hct 20.5 L (34.0-46.0) % RDW 18.2 H (11.5-15.5) % Plt Count 120 L (150-450) k/uL Lymphocytes # 0.1 L (1.0-4.8) k/uL Sodium 135 L (137-145) mmol/L Carbon Dioxide 31 H (22-30) mmol/L Creatinine 0.49 L (0.52-1.04) mg/dL Glucose 107 H (74-99) mg/dL Calcium 11.4 H (8.4-10.2) mg/dL Phosphorus (2.5-4.5) mg/dL Total Bilirubin (0.2-1.3) mg/dL AST (14-36) U/L Troponin I 0.062 H* (0.000-0.034) ng/mL Total Protein (6.3-8.2) g/dL Albumin (3.5-5.0) g/dL 08/07/16 08/08/16 08/08/16 Range/Units 22:55 05:48 05:48 RBC 3.33 L (3.80-5.40) m/uL Hgb 10.5 L D (11.4-16.0) gm/dL Hct 32.9 L (34.0-46.0) % RDW 16.7 H (11.5-15.5) % Plt Count 105 L (150-450) k/uL Lymphocytes # 0.1 L (1.0-4.8) k/uL Sodium (137-145) mmol/L Carbon Dioxide (22-30) mmol/L Creatinine 0.48 L (0.52-1.04) mg/dL Glucose 108 H (74-99) mg/dL Calcium 11.9 H (8.4-10.2) mg/dL Phosphorus 2.1 L (2.5-4.5) mg/dL Total Bilirubin 1.7 H (0.2-1.3) mg/dL AST 43 H (14-36) U/L Troponin I 0.051 H* (0.000-0.034) ng/mL Total Protein 5.8 L (6.3-8.2) g/dL Albumin 2.8 L (3.5-5.0) g/dL Chest x-ray: report reviewed CT Scan - head: report reviewed Thrombosis Risk Factor Assmnt - DVT/VTE Prophylaxis DVT/VTE Prophylaxis: Pharmacologic Prophylaxis ordered - Choose All That Apply Any of the Below Risk Factors Present?: Yes Each Factor Represents 1 point: Obesity (BMI >25) Other Risk Factors: Yes Each Risk Factor Represents 2 Points: Age 61-74 years Other congenital or acquired thrombophilia - If yes, enter type in comment: No Thrombosis Risk Factor Assessment Total Risk Factor Score: 3 Thrombosis Risk Factor Assessment Level: Moderate Risk Assessment and Plan Plan: Impression: 1. Acute metabolic encephalopathy suspect secondary to dehydration and possible urinary tract infection. 2. Anemia, chronic suspect secondary to cancer and hemodilution. Hemoglobin 7.4, 6.8, and 10.5 status post 2 units of PRBC. 3. Thrombocytopenia. Platelet count 105. 4. Hypokalemia, present on admission, improved. 5. Hyponatremia, present on admission, resolved. 6. Hypercalcemia, present on admission. 7. Hypophosphatemia, present on admission. 8. Hypomagnesemia, present on admission. 9. Elevated troponins, present on admission. 10. Hypoalbuminemia suspect secondary to moderate malnutrition suspect secondary to decreased protein intake secondary to metastatic carcinoma. 11. Medical debility. 12. History of frequent falls. 13. Osteoarthritis. 14. Hyperlipidemia. 15. Fibromyalgia. 16. History of remote nicotine dependence. Plan: Continue to monitor patient. Continue IV hydration and IV antibiotics. Continue to follow urine culture. Replace electrolytes per protocol. Cardiology consult for elevated troponins, recommendations pending. Oncology consult for history of stage IV endometrial carcinoma metastasis, recommendations pending. Consult physical therapy for generalized weakness. Maintain fall precautions. Continue supportive treatment and pain management. Continue GI and DVT prophylaxis. Patient will be moved to oncology floor. Repeat CBC and CMP in a.m. The above impression and plan have been discussed and directed by Dr. Agrawal. Candida PRO acting as scribe for Dr. Agrawal.
[2016-08-08] MEDS ORDERED: RX INFO: IV CONTRAST WAS GIVEN 1 EACH MISC MISCELLANE PRN (17:02)
--- NOTE | 2016-08-08 18:41 | CT ---
EXAMINATION TYPE: CT brain w con DATE OF EXAM: 08/08/2016 6:11 PM COMPARISON: 08/07/2016 HISTORY: weakness. History of Uterine cancer CT DLP: 961 mGycm Automated exposure control for dose reduction was used. CONTRAST: CT scan of the head is performed with IV Contrast, patient injected with 100 mL of Omnipaque 300. FINDINGS: There is mild cerebral cortical atrophy. There is no mass effect or midline shift. There is no sign o f intracranial hemorrhage. There is a 1 cm enhancing focus on the left side at the posterior superior aspect of the left lateral ventricle. There is minimal surrounding edema. It is not clear if the mass is within the ventricle o r in the brain parenchyma. There is no hydrocephalus. Calvarium is intact. IMPRESSION: 1 cm enhancing mass adjacent to the left lateral ventricle with minimal surrounding edema. I would co nsider possibilities of metastatic disease, meningioma ependymoma, glioma. Follow-up is recommended.
[2016-08-08] MEDS ORDERED: ZOLEDRONIC ACID 4 MG in SODIUM CHLORIDE 0.9% 100 ML IV ONE (19:00)
--- NOTE | 2016-08-08 20:51 | P.CONS ---
History of Present Illness - Reason for Consult Consult date: 08/08/16 Altered mental status. Hypercalcemia. Metastatic uterine cancer - History of Present Illness The patient is a 65-year-old lady, well known to myself. She was initially seen in consult in 01/20, when she had presented with progressive lower abdominal pain, and intermittent vaginal bleeding. A computed tomography scan of the abdomen and pelvis revealed a bulky appearing uterus with marked abdominopelvic adenopathy. Biopsy was positive for adenocarcinoma of the uterus. The patient had stage IV disease, with multiple pulmonary nodules. This was further confirmed with a PET scan, which showed the uptake in the pulmonary nodules, as well as the uterus, abdominopelvic nodes, in addition to possible bone involvement in a couple of areas. She was started on chemotherapy with carboplatin and Taxol, with CT scans in 03/23 revealing a good response. She subsequently transferred her care to [facility] due to with Dr. Camejo, and continued chemotherapy there. She completed chemotherapy, around early 06/22. She was admitted to the hospital in mid 06/22 with sepsis, and seen in consult at that time. Despite good response to chemotherapy noted on imaging, she continued to complain of significant lower abdominal pain. Therefore radiation was recommended. The patient apparently finished that about 2 or 3 weeks ago. The patient had been having issues with increasing weakness over the last few days, along with intermittent confusion and difficulty with recall. She was therefore brought into the emergency room. Labs showed elevation of calcium 11 range, as well as an abnormal-appearing UA. She was therefore admitted for further management. The consult was placed for further evaluation and recommendations Review of Systems Constitutional: Reports chronic pain, Reports poor appetite, Reports weakness, Reports weight loss Eyes: denies blurred vision, denies pain Ears: deny: decreased hearing, ear discharge, earache, tinnitus Ears, nose, mouth and throat: Denies headache, Denies sore throat Cardiovascular: Reports decreased exercise tolerance Respiratory: Reports dyspnea Gastrointestinal: Reports abdominal pain, Reports constipation Genitourinary: Reports incomplete emptying, Reports pelvic pain, Reports stress incontinence, Reports urinary frequency Menstruation: Reports postmenopausal Musculoskeletal: Reports muscle weakness Integumentary: Denies pruritus, Denies rash Neurological: Reports change in mentation, Reports weakness Psychiatric: Reports anxiety Endocrine: Reports weight change Hematologic/Lymphatic: Reports as per HPI Past Medical History Past Medical History: Cancer, Deep Vein Thrombosis (DVT), Eye Disorder, Fibromyalgia, Hyperlipidemia, Osteoarthritis (OA) Additional Past Medical History / Comment(s): STAGE 4 ENDOMETRIAL (UTERINE) CANCER, HAD CHEMO-and recently started radiation, PT STATED LOST 45-50# SINCE DECEMBER 2015, fibromyalgia, DVT L leg, BRONCHITIS, BEGINNINGS OF CATARACTS History of Any Multi-Drug Resistant Organisms: None Reported Past Surgical History: Cholecystectomy, Tonsillectomy Additional Past Surgical History / Comment(s): COLONOSCOPY, Past Anesthesia/Blood Transfusion Reactions: No Reported Reaction Past Psychological History: No Psychological Hx Reported Additional Psychological History / Comment(s): Pt resides with her spouse. She uses a cane or walker to ambulate. She no longer drives, her spouse does. She has friends who come to her home and assist her. Smoking Status: Former smoker Past Alcohol Use History: Occasional Additional Past Alcohol Use History / Comment(s): STATED WOULD HAVE AN OCC SOCIAL CIGARETTE, BUT QUIT 30 YEARS AGO Past Drug Use History: None Reported Additional Drug Use History / Comment(s): Pt states she occassionally would have social cigarette - Past Family History Mother Family Medical History: Deep Vein Thrombosis (DVT) Father Family Medical History: Cancer Additional Family Medical History / Comment(s): MELANOMA Brother(s) Family Medical History: Pulmonary Embolus Medications and Allergies Home Medications Medication Instructions Recorded Confirmed Type Morphine Oral Soln [Roxanol Oral 20 mg PO Q4HR PRN 08/07/16 08/07/16 History Soln Conc 20MG/ML] Morphine Sulfate Ir [MSIR] 30 mg PO Q4HR PRN 08/07/16 08/07/16 History fentaNYL 100MCG/HR PATCH 1 patch TRANSDERM Q72H 08/07/16 08/07/16 History [Duragesic 100MCG/HR] fentaNYL 50MCG/HR PATCH [Duragesic 1 patch TRANSDERM Q72H 08/07/16 08/07/16 History 50MCG/HR] Allergies Allergy/AdvReac Type Severity Reaction Status Date / Time Penicillins Allergy Rash/Hives Verified 08/07/16 12:56 codeine AdvReac Nausea & Verified 08/07/16 12:56 Vomiting/dizzyness oxycodone AdvReac Hallucinati Verified 08/07/16 12:56 ons Physical Exam Vitals: Vital Signs Temp Pulse Pulse Resp BP BP Pulse Ox 08/08/16 12:00 98.5 F 88 16 138/82 93 L 08/08/16 08:00 97.7 F 95 18 132/74 93 L 08/08/16 04:00 96 18 08/08/16 03:02 97.3 F L 83 18 148/70 95 08/08/16 02:32 97.3 F L 96 18 151/57 97 08/08/16 02:22 97.4 F L 92 18 150/70 93 L 08/08/16 02:12 98.1 F 91 18 148/68 94 L 08/08/16 00:00 89 18 08/07/16 23:40 97.5 F L 89 18 132/61 94 L 08/07/16 23:10 85 18 124/59 94 L 08/07/16 23:00 97.7 F 96 18 128/61 97 08/07/16 22:42 97.7 F 86 18 121/60 94 L Intake and Output 08/08/16 08/08/16 08/08/16 06:59 14:59 22:59 Intake Total 560 1760 Output Total 950 600 Balance -390 1160 Intake: IV 1200 Sodium Chloride 0.9% 1, 1200 000 ml @ 100 mls/hr IV . Q10H STA Rx#:[id number] Blood Product 560 560 Rc As-1 Unit 310 [id number] Rc Cpda-1 Unit 250 [id number] Output: Urine 950 600 Other: Voiding Method Bedpan Bedpan # Voids 1 2 3 Weight 78 kg 78 kg Patient Weight 08/09/16 06:59 Weight 78 kg - Constitutional General appearance: no acute distress - EENT Eyes: EOMI, PERRLA ENT: hearing grossly normal, normal oropharynx - Neck Neck: lymphadenopathy (Left supraclavicular, approximately 2 cm) Thyroid: bilateral: normal size - Respiratory Respiratory: bilateral: CTA - Cardiovascular Rhythm: regular Heart sounds: normal: S1, S2 - Gastrointestinal General gastrointestinal: normal bowel sounds, soft - Integumentary Integumentary: normal - Neurologic Neurologic: CNII-XII intact - Musculoskeletal Musculoskeletal: generalized weakness - Psychiatric The patient was intermittently confused, with poor recall. Results CBC & Chem 7: 08/08/16 05:48 08/08/16 05:48 Labs: Abnormal Lab Results - Last 24 Hours (Table) 08/07/16 08/08/16 08/08/16 Range/Units 22:55 05:48 05:48 RBC 3.33 L (3.80-5.40) m/uL Hgb 10.5 L D (11.4-16.0) gm/dL Hct 32.9 L (34.0-46.0) % RDW 16.7 H (11.5-15.5) % Plt Count 105 L (150-450) k/uL Lymphocytes # 0.1 L (1.0-4.8) k/uL Creatinine 0.48 L (0.52-1.04) mg/dL Glucose 108 H (74-99) mg/dL Calcium 11.9 H (8.4-10.2) mg/dL Phosphorus 2.1 L (2.5-4.5) mg/dL Total Bilirubin 1.7 H (0.2-1.3) mg/dL AST 43 H (14-36) U/L Troponin I 0.051 H* (0.000-0.034) ng/mL Total Protein 5.8 L (6.3-8.2) g/dL Albumin 2.8 L (3.5-5.0) g/dL Chest x-ray: report reviewed CT Scan - head: report reviewed Assessment and Plan (1) Altered mental status Narrative/Plan: This is possibly multifactorial, with possible etiologies including hypercalcemia, dehydration and UTI, as well as ongoing opioid pain medications. Computed tomography scan of the brain was negative for evidence of metastasis , bleed or stroke. However this was a noncontrast study. Therefore a computed tomography scan of the brain with contrast will be ordered to rule out metastatic disease. The patient is currently on IV hydration, and has been started on antibiotics for the UTI. She will be given IV bisphosphonate, to reduce the calcium level. Follow mental status with the above measures. Status: Acute (2) Endometrial carcinoma Narrative/Plan: The patient had stage IV disease at presentation, with involvement in the lungs, and possibly in the bone. When seen in 06/22, she had reported a good response to chemotherapy, on imaging done at [facility]. However her current clinical presentation is suspicious for progression. Chest x-ray noted multiple lung nodules, which appear to have progressed compared to her prior study. In addition she has palpable adenopathy which she does not have at presentation either. The hypercalcemia is also suspicious for the same. I will discuss the above impression, with her once her mental status is normal , or with her family. She will follow-up with the Dr. Camejo in this regard post discharge Status: Acute
[2016-08-09] MEDS: MORPHINE SULFATE IR 15 MG TABLET PO PRN ×5 (05:36→20:37)
[2016-08-09 07:35] VITALS: RESP 16
[2016-08-09] MEDS: ENOXAPARIN 40 MG/0.4 ML SYRINGE SQ SCH (08:39)
[2016-08-09] MEDS: PANTOPRAZOLE 40 MG/10 ML VIAL IVP SCH (08:39)
[2016-08-09 09:29] LABS: Anisocytosis Slight; Basophils % (A) 0 %; CH 32.4; CHCM 34.5; Eosinophils % (A) 0 %; HCT 30.3 % (34.0-46.0); HDW 3.81; HGB 10.2 gm/dL (11.4-16.0); Luc # (Auto) 0.06; Luc % (Auto) 1; Lymphocytes # (A) 0.2 k/uL (1.0-4.8); Lymphocytes % (A) 2 %; MCH 31.7 pg (25.0-35.0); MCHC 33.6 g/dL (31.0-37.0); MCV 94.4 fL (80.0-100.0); Mean Platelet Volume 8.4; Monocytes # (A) 0.4 k/uL (0-1.0); Monocytes % (A) 5 %; Neutrophils # (A) 7.3 k/uL (1.3-7.7); Neutrophils % (A) 92 %; Poikilocytosis Slight; RBC 3.21 m/uL (3.80-5.40); RDW 16.9 % (11.5-15.5); WBC 7.9 k/uL (3.8-10.6); WBC (Perox) 8.45
[2016-08-09 09:51] LABS: ALT 24 U/L (9-52); AST 34 U/L (14-36); Alkaline Phosphatase 130 U/L (38-126); Anion Gap 9 mmol/L; Blood Urea Nitrogen 9 mg/dL (7-17); Calcium 12.2 mg/dL (8.4-10.2); Carbon Dioxide 29 mmol/L (22-30); Chloride 96 mmol/L (98-107); Glucose 110 mg/dL (74-99); Magnesium 1.5 mg/dL (1.6-2.3); Non-African American GFR(MDRD) >60 (>60 ml/min/1.73 sqM); Phosphorous 2.6 mg/dL (2.5-4.5); Potassium 3.4 mmol/L (3.5-5.1); Sodium 134 mmol/L (137-145); Total Bilirubin 1.1 mg/dL (0.2-1.3); Total Protein 5.9 g/dL (6.3-8.2)
[2016-08-09] MEDS ORDERED: Magnesium Replacement Protocol 1 EACH MISC MISCELLANE PRN (13:02)
[2016-08-09] MEDS ORDERED: Potassium Replacement Protocol 1 EACH MISC MISCELLANE PRN (13:02)
--- NOTE | 2016-08-09 13:27 | P.PN ---
Subjective Principal diagnosis: Stage IV uterine cancer with metastasis Patient is a 65-year-old female, patient of Dr. Nils Agrawal in the outpatient setting and Dr. Camejo at [facility], with medical history significant for stage IV endometrioid carcinoma with metastasis, anemia , fibromyalgia, hyperlipidemia, DVT, and osteoarthritis. Patient presented to the emergency department with complaints of generalized weakness and altered mental status. Chest x-ray in the emergency department with evidence of numerous bilateral soft tissue nodules within the lungs suggestive of progression of metastatic disease. CAT scan of the brain without contrast with no acute intracranial hemorrhage, mass effect, or midline shift. EKG sinus tachycardia with heart rate of 102, nonspecific T-wave abnormality. Labs on admission with evidence of anemia with hemoglobin of 7.4, thrombocytopenia with platelet count of 131, electrolyte imbalance with potassium of 3.2, phosphorus of 2.4, and magnesium of 1.2. Patient also had elevated troponins at 0.073 and 0.051. Urinalysis suggestive of urinary tract infection with large amount of leukocyte esterase and greater than 182 WBC. In the emergency department patient was fluid resuscitated with 3 L of normal saline, and started on IV antibiotics in the form of ceftriaxone for suspected urinary tract infection. Patient was admitted to the selective care unit for further monitoring consult requested for cardiology service and oncology service. Repeat hemoglobin after fluid resuscitation 6.8, patient did receive 2 units of PRBC. 08/08/2016: Upon examination, patient reports that she is been more forgetful and have been falling more frequently at home. Patient reports decreased oral intake at home. Patient states she's been more nauseated and had episodes of vomiting at home. Patient reports chronic lower abdominal pain but states it's usually controlled with fentanyl patches. Patient reports chills. No history of fevers. No history of shortness of breath or chest pain. Patient denies diarrhea or constipation. Patient denies new rashes or lesions. Patient denies dysuria, urgency, or hematuria. No history of melena, hematochezia, or hematemesis. Patient reports that she didn't see Dr. Camejo after she was discharged from her previous hospitalization in June. A.m. labs reveals improved hemoglobin of 10.5, decreased platelet count of 105, phosphorus of 2.1 , magnesium 1.7, total protein of 5.8, and albumin of 2.8. Patient is afebrile. Hemodynamically stable. Nurse reports that patient has been too weak to get out of bed and has used a bedpan to urinate. 08/09/2016: Patient is evaluated on the oncology floor. Patient complains of lower abdominal pain rated 8 out of 10. Denies chills, nausea, vomiting, shortness of breath, or chest pain. Nursing staff reports that patient has had continued episodes of confusion overnight but reorients easily. Repeat CAT scan of the brain with contrast with evidence of 1 cm enhancing focus on the left side at the posterior-superior aspect of the left lateral ventricle with minimal surrounding edema. Preliminary urine culture with gram-negative bacilli. Patient afebrile. WBC 7.9. Hemoglobin 10.2. Sodium 134. Potassium 3.4. Magnesium 1.5. Calcium 12.2. Alk phos 1.30. Per cardiology, troponins not consistent with acute coronary syndrome. Echocardiogram with Doppler with evidence of preserved ventricular systolic function with an EF between 50-55%; mild mitral and tricuspid regurgitation; and mild pulmonary hypertension. Objective - Vital Signs Vital signs: Vital Signs Temp 98.1 F 08/09/16 07:00 Pulse 102 H 08/09/16 08:00 Resp 16 08/09/16 08:00 BP 132/60 08/09/16 07:00 Pulse Ox 92 L 08/09/16 07:00 Intake & Output 08/08/16 08/09/16 08/09/16 18:59 06:59 18:59 Intake Total 1760 200 100 Output Total 600 Balance 1160 200 100 Weight 78 kg Intake: IV 1200 200 Sodium Chloride 0.9% 1, 1200 000 ml @ 100 mls/hr IV . Q10H STA Rx#:[id number] Zoledronic Acid 4 mg In 200 Sodium Chloride 0.9% 100 ml @ 315 mls/hr IV ONCE ONE Rx#:[id number] Oral 100 Blood Product 560 Output: Urine 600 Other: Voiding Method Bedpan Bedpan Bedpan Diaper Diaper Incontinent Incontinent # Voids 3 2 - Exam GENERAL: Pt awake and alert, lying in bed, appears uncomfortable. HEAD: Normocephalic. EYES: Pupils equal, round, and reactive to light, extraocular movements intact, sclera anicteric, conjunctiva are normal. ENT: Moist mucous membranes. NECK:Normal range of motion, supple without lymphadenopathy or JVD. LUNGS: Breath sounds clear to auscultation bilaterally. No wheezes, rales, or rhonchi. HEART: Heart S1, S2, no S3 or S4, no murmurs, rubs or gallops. Tachycardia. ABDOMEN: Soft, moderate suprapubic tenderness, normoactive bowel sounds. No guarding, no rebound. EXTREMITIES: 2+ peripheral pulses, no edema to bilateral lower extremities. No calf tenderness. NEUROLOGICAL: Pt oriented x 3. No focal deficits. Decreased strength to upper and lower extremities. PSYCH: Appears depressed. SKIN: Warm, dry, intact. Normal turgor. No rashes or lesions. - Labs CBC & Chem 7: 08/09/16 08:33 08/09/16 08:33 Labs: Abnormal Lab Results - Last 24 Hours (Table) 08/09/16 08/09/16 Range/Units 08:33 08:33 RBC 3.21 L (3.80-5.40) m/uL Hgb 10.2 L (11.4-16.0) gm/dL Hct 30.3 L (34.0-46.0) % RDW 16.9 H (11.5-15.5) % Plt Count 128 L (150-450) k/uL Lymphocytes # 0.2 L (1.0-4.8) k/uL Sodium 134 L (137-145) mmol/L Potassium 3.4 L (3.5-5.1) mmol/L Chloride 96 L (98-107) mmol/L Creatinine 0.47 L (0.52-1.04) mg/dL Glucose 110 H (74-99) mg/dL Calcium 12.2 H (8.4-10.2) mg/dL Magnesium 1.5 L (1.6-2.3) mg/dL Alkaline Phosphatase 130 H (38-126) U/L Total Protein 5.9 L (6.3-8.2) g/dL Albumin 2.8 L (3.5-5.0) g/dL Assessment and Plan Plan: Impression: 1. Stage IV endometrial carcinoma with metastases to lungs and new lesion and brain. 2. Acute metabolic encephalopathy suspect multifactorial secondary to dehydration, electrolyte imbalance, urinary tract infection and new lesion to brain. 3. Urinary tract infection. Preliminary urine culture positive for gram- negative bacilli. 2. Anemia, chronic suspect secondary to cancer and hemodilution. Hemoglobin stable at 10.2 status post 2 units of PRBC. 3. Thrombocytopenia. Platelet count 128. 4. Hypokalemia. Potassium 3.4. 5. Hyponatremia. Sodium 134. 6. Hypercalcemia, present on admission. Calcium increased to 12.2. 7. Hypophosphatemia, present on admission, resolved. 8. Hypomagnesemia, present on admission. Magnesium 1.5. 9. Elevated troponins, present on admission, not consistent with acute coronary syndrome. 10. Hypoalbuminemia suspect secondary to moderate malnutrition suspect secondary to decreased protein intake secondary to metastatic carcinoma. 11. Medical debility. 12. History of frequent falls. 13. Osteoarthritis. 14. Hyperlipidemia. 15. Fibromyalgia. 16. History of remote nicotine dependence. Plan: Continue to monitor patient. Continue IV hydration and IV antibiotics. Continue to follow urine culture. Replace electrolytes per protocol. Oncology consult for history of stage IV endometrial carcinoma with metastasis, recommendations noted. Continue physical therapy for generalized weakness. Maintain fall precautions. Continue supportive treatment and pain management. Continue GI and DVT prophylaxis. Repeat CBC and CMP in a.m. Dr. Agrawal did update patient and and consult has been requested for [facility] and social work to assist with discharge planning. The above impression and plan have been discussed and directed by Dr. Agrawal. Candida PRO acting as scribe for Dr. Agrawal.
[2016-08-09] MEDS: MAGNESIUM SULFATE-D5W PMX 1 GM in DEXTROSE/WATER 1 100ML.BAG IVPB SCH ×2 (13:30→14:40)
[2016-08-09] MEDS: POTASSIUM CHLORIDE ER 20 MEQ TAB.ER PO SCH (14:31)
--- NOTE | 2016-08-09 17:22 | P.PN ---
Subjective Principal diagnosis: metastatic uterine cancer Pt seen today in follow up, she is confused to events but denies nausea, headache, dizziness, DUYEN or acute pain. Objective - Vital Signs Vital signs: Vital Signs Temp 97.9 F 08/09/16 15:00 Pulse 99 08/09/16 15:00 Resp 16 08/09/16 15:00 BP 128/58 08/09/16 15:00 Pulse Ox 93 L 08/09/16 15:00 Intake & Output 08/08/16 08/09/16 08/09/16 18:59 06:59 18:59 Intake Total 1760 200 200 Output Total 600 Balance 1160 200 200 Weight 78 kg Intake: IV 1200 200 Sodium Chloride 0.9% 1, 1200 000 ml @ 100 mls/hr IV . Q10H STA Rx#:[id number] Zoledronic Acid 4 mg In 200 Sodium Chloride 0.9% 100 ml @ 315 mls/hr IV ONCE ONE Rx#:[id number] Intake, IV Titration 100 Amount Magnesium Sulfate-D5w Pmx 100 1 gm In Dextrose/Water 1 100ml.bag @ 100 mls/hr IVPB Q1H ROSY Rx#: [id number] Oral 100 Blood Product 560 Output: Urine 600 Other: Voiding Method Bedpan Bedpan Bedpan Diaper Diaper Incontinent Incontinent # Voids 3 2 - Constitutional General appearance: Present: average body habitus, cooperative, mild distress - EENT Eyes: Present: anicteric sclerae ENT: Present: normal oropharynx - Respiratory Respiratory: bilateral: CTA - Cardiovascular Heart sounds: normal: S1, S2 - Peripheral edema foot Peripheral Edema: bilateral: None - Gastrointestinal General gastrointestinal: Present: normal bowel sounds, soft - Integumentary Integumentary: Present: pale - Psychiatric Psychiatric Comment(s): Pt states "depressed", "feeling down" - Labs CBC & Chem 7: 08/09/16 08:33 08/09/16 08:33 Labs: Abnormal Lab Results - Last 24 Hours (Table) 08/09/16 08/09/16 Range/Units 08:33 08:33 RBC 3.21 L (3.80-5.40) m/uL Hgb 10.2 L (11.4-16.0) gm/dL Hct 30.3 L (34.0-46.0) % RDW 16.9 H (11.5-15.5) % Plt Count 128 L (150-450) k/uL Lymphocytes # 0.2 L (1.0-4.8) k/uL Sodium 134 L (137-145) mmol/L Potassium 3.4 L (3.5-5.1) mmol/L Chloride 96 L (98-107) mmol/L Creatinine 0.47 L (0.52-1.04) mg/dL Glucose 110 H (74-99) mg/dL Calcium 12.2 H (8.4-10.2) mg/dL Magnesium 1.5 L (1.6-2.3) mg/dL Alkaline Phosphatase 130 H (38-126) U/L Total Protein 5.9 L (6.3-8.2) g/dL Albumin 2.8 L (3.5-5.0) g/dL - Imaging and Cardiology CT Scan - head: report reviewed Assessment and Plan (1) Altered mental status Narrative/Plan: CT with contrast of the head suggestive of metastatic disease, MRI ordered. This was discussed with the patient but it is not clear how much she understood. We have set up a family meeting for tomorrow afternoon, we will discuss diagnosis, prognosis and treatment options, plan of care to follow. 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
[2016-08-10] MEDS: MORPHINE SULFATE IR 15 MG TABLET PO PRN ×4 (00:13→14:28)
[2016-08-10 07:38] LABS: Anisocytosis Slight; Basophils % (A) 0 %; CH 32.1; CHCM 33.2; Eosinophils % (A) 0 %; HCT 28.3 % (34.0-46.0); HDW 3.65; Hypochromasia Slight; Luc # (Auto) 0.07; Luc % (Auto) 1; Lymphocytes # (A) 0.1 k/uL (1.0-4.8); Lymphocytes % (A) 2 %; MCH 31.1 pg (25.0-35.0); MCV 97.2 fL (80.0-100.0); Macrocytosis Slight; Mean Platelet Volume 8.5; Monocytes # (A) 0.4 k/uL (0-1.0); Monocytes % (A) 7 %; Neutrophils % (A) 89 %; Poikilocytosis Slight; RBC 2.91 m/uL (3.80-5.40); RDW 16.8 % (11.5-15.5); WBC 5.6 k/uL (3.8-10.6); WBC (Perox) 5.69
[2016-08-10 07:44] VITALS: BP 122/56; PULSE 68; TEMP 98.5
[2016-08-10 07:51] LABS: ALT 34 U/L (9-52); AST 34 U/L (14-36); Alkaline Phosphatase 120 U/L (38-126); Anion Gap 7 mmol/L; Blood Urea Nitrogen 11 mg/dL (7-17); Calcium 11.2 mg/dL (8.4-10.2); Carbon Dioxide 29 mmol/L (22-30); Chloride 98 mmol/L (98-107); Glucose 103 mg/dL (74-99); Magnesium 1.6 mg/dL (1.6-2.3); Non-African American GFR(MDRD) >60 (>60 ml/min/1.73 sqM); Phosphorous 1.8 mg/dL (2.5-4.5); Potassium 3.5 mmol/L (3.5-5.1); Sodium 134 mmol/L (137-145); Total Protein 5.5 g/dL (6.3-8.2)
[2016-08-10] MEDS: ENOXAPARIN 40 MG/0.4 ML SYRINGE SQ SCH (08:18)
[2016-08-10] MEDS: PANTOPRAZOLE 40 MG/10 ML VIAL IVP SCH (08:18)
[2016-08-10] MEDS ORDERED: Magnesium Replacement Protocol 1 EACH MISC MISCELLANE PRN (08:49)
[2016-08-10] MEDS ORDERED: Phosphorus Replacement Protoco 1 EACH MISC MISCELLANE PRN (08:50)
[2016-08-10] MEDS ORDERED: Potassium Replacement Protocol 1 EACH MISC MISCELLANE PRN (08:51)
[2016-08-10] MEDS ORDERED: SODIUM PHOSPHATE 10 MMOL in SODIUM CHLORIDE 0.9% 250 ML IVPB ONE (09:00)
[2016-08-10] MEDS: MAGNESIUM SULFATE-D5W PMX 1 GM in DEXTROSE/WATER 1 100ML.BAG IVPB SCH ×2 (09:19→10:36)
[2016-08-10] MEDS: POTASSIUM CHLORIDE ER 20 MEQ TAB.ER PO SCH ×2 (11:04→11:05)
[2016-08-10] MEDS: MORPHINE ORAL SOLN 20 MG/1 ML ORAL SYRINGE PO PRN ×2 (12:09→16:36)
[2016-08-10] MEDS: LORazepam 1 MG TAB PO PRN ×2 (12:10→16:36)
--- NOTE | 2016-08-10 15:41 | P.PN ---
Subjective Principal diagnosis: metastatic uterine cancer Dr. Beaulieu meeting with family for opinion re: comfort vs pursuing aggressive treatment, pt continues to be confused, no acute physical distress. Objective - Vital Signs Vital signs: Vital Signs Temp 98.5 F 08/10/16 07:00 Pulse 68 08/10/16 07:00 Resp 16 08/10/16 07:00 BP 122/56 08/10/16 07:00 Pulse Ox 94 L 08/10/16 07:00 Intake & Output 08/09/16 08/10/16 08/10/16 18:59 06:59 18:59 Intake Total 200 840 Balance 200 840 Weight 78 kg Intake: Intake, IV Titration 100 Amount Magnesium Sulfate-D5w Pmx 100 1 gm In Dextrose/Water 1 100ml.bag @ 100 mls/hr IVPB Q1H ROSY Rx#: [id number] Oral 100 840 Other: Voiding Method Bedpan Bedpan Bedpan Diaper Diaper Diaper Incontinent Incontinent Incontinent # Voids 2 3 3 - Labs CBC & Chem 7: 08/10/16 07:05 08/10/16 07:05 Labs: Abnormal Lab Results - Last 24 Hours (Table) 08/10/16 08/10/16 Range/Units 07:05 07:05 RBC 2.91 L (3.80-5.40) m/uL Hgb 9.0 L (11.4-16.0) gm/dL Hct 28.3 L (34.0-46.0) % RDW 16.8 H (11.5-15.5) % Plt Count 117 L (150-450) k/uL Lymphocytes # 0.1 L (1.0-4.8) k/uL Sodium 134 L (137-145) mmol/L Creatinine 0.48 L (0.52-1.04) mg/dL Glucose 103 H (74-99) mg/dL Calcium 11.2 H (8.4-10.2) mg/dL Phosphorus 1.8 L (2.5-4.5) mg/dL Total Protein 5.5 L (6.3-8.2) g/dL Albumin 2.6 L (3.5-5.0) g/dL Assessment and Plan (1) Altered mental status Status: Acute (2) Hypercalcemia Status: Acute (3) 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 All of family's questions were answered. Comfort measures only is a very reasonable choice for care as pt malignancy is not curable and treatment at this time could actually harm the pt rather then provide her with any significant benefit. Time with Patient: Less than 30
--- NOTE | 2016-08-10 16:02 | P.DS ---
Providers Date of admission: 08/07/16 12:28 Expected date of discharge: 08/10/16 Attending physician: Nils Agrawal Consults: 08/07/16 15:44 Consult Physician Urgent Consulting Provider: Lul Oden Consult Reason/Comments: elevated troponin Do you want consulting provider notified?: Yes Consult Physician Urgent Consulting Provider: Mariusz Beaulieu Consult Reason/Comments: uterine cancer with metastasis Do you want consulting provider notified?: Yes Primary care physician: Nils Agrawal Hospital Course: Patient is a 65-year-old female, patient of Dr. Nils Agrawal in the outpatient setting and Dr. Camejo at [facility], with medical history significant for stage IV endometrioid carcinoma with metastasis, anemia , fibromyalgia, hyperlipidemia, DVT, and osteoarthritis. Patient presented to the emergency department with complaints of generalized weakness and altered mental status. Patient was found to have evidence of dehydration, severe electrolyte imbalance, new onset lung metastasis and brain metastasis, and urinary tract infection with urine cultures positive for E. coli ESBL producing. Patient did have elevated troponins on admission which was felt to be not consistent with acute coronary syndrome per cardiology service. During hospitalization, patient was seen and evaluated by oncology service. Per discussion with family and medical team, patient was felt appropriate for discharge to hospice. Discharge diagnoses: 1. Stage IV endometrial carcinoma with metastases to lungs and new lesion and brain. 2. Acute metabolic encephalopathy suspect multifactorial secondary to dehydration, electrolyte imbalance, urinary tract infection and brain metastasis. 3. Urinary tract infection with urine culture positive for E. coli ESBL producing. 2. Anemia, chronic suspect secondary to cancer and hemodilution. 3. Thrombocytopenia. 4. Hypokalemia. 5. Hyponatremia. 6. Hypercalcemia, present on admission. 7. Hypophosphatemia, present on admission, resolved. 8. Hypomagnesemia, present on admission. 9. Elevated troponins, present on admission, not consistent with acute coronary syndrome. 10. Hypoalbuminemia suspect secondary to moderate malnutrition suspect secondary to decreased protein intake secondary to metastatic carcinoma. 11. Medical debility. 12. History of frequent falls. 13. Osteoarthritis. 14. Hyperlipidemia. 15. Fibromyalgia. 16. History of remote nicotine dependence. The above impression and plan have been discussed and directed by Dr. Agrawal. Candida PRO acting as scribe for Dr. Agrawal. Pertinent Studies: Chest x-ray; brain CT; EKG; echocardiogram with Doppler; brain CT Patient Condition at Discharge: Fair Plan - Discharge Summary New Discharge Prescriptions: Atropine Ophth Soln 1% 5Ml [Isopto Atropine 1% 5Ml] 2 drops SL Q4H PRN #1 bottle PRN Reason: Secretions LORazepam ORAL CONC [Ativan Intensol] 1 - 2 mg PO Q3H PRN #30 ml PRN Reason: Anxiety Morphine Oral Soln [Roxanol Oral Soln Conc 20MG/ML] 20 mg PO Q4HR PRN #50 ml PRN Reason: Breakthrough Pain Morphine Sulfate Ir [MSIR] 30 mg PO Q4HR PRN #42 tablet PRN Reason: Breakthrough Pain Sulfamethox-Tmp 800-160Mg [Bactrim DS 800-160 mg] 1 tab PO Q12HR #20 tab fentaNYL 100MCG/HR PATCH [Duragesic 100MCG/HR] 1 patch TRANSDERM Q72H #3 patch fentaNYL 50MCG/HR PATCH [Duragesic 50MCG/HR] 1 patch TRANSDERM Q72H #3 patch Discharge Medication List Atropine Ophth Soln 1% 5Ml [Isopto Atropine 1% 5Ml] 2 drops SL Q4H PRN #1 bottle 08/10/16 [Rx] LORazepam ORAL CONC [Ativan Intensol] 1 - 2 mg PO Q3H PRN #30 ml 08/10/16 [Rx] Morphine Oral Soln [Roxanol Oral Soln Conc 20MG/ML] 20 mg PO Q4HR PRN #50 ml 09/21 [Rx] Morphine Sulfate Ir [MSIR] 30 mg PO Q4HR PRN #42 tablet 08/10/16 [Rx] Sulfamethox-Tmp 800-160Mg [Bactrim DS 800-160 mg] 1 tab PO Q12HR #20 tab [Rx] fentaNYL 100MCG/HR PATCH [Duragesic 100MCG/HR] 1 patch TRANSDERM Q72H #3 patch 08/10/16 [Rx] fentaNYL 50MCG/HR PATCH [Duragesic 50MCG/HR] 1 patch TRANSDERM Q72H #3 patch 09/21 [Rx] Follow up Appointment(s)/Referral(s): Nils Agrawal DO [Primary Care Provider] - As Needed Patient Instructions/Handouts: Sulfamethoxazole/Trimethoprim (By mouth), Lorazepam (By mouth), Morphine, Rapid Release (By mouth), Fentanyl (Absorbed through the skin), Atropine (Into the eye), Hospice (DC) Discharge Disposition: DISCH TO HOSPICE MED FACILTY
== END 2016-08-10 18:00 | disposition hospice, inpatient (51) | DRG 689 ==
LOC: EC 10:06 → 6SEL 12:28 → 5ONC 08-08 15:40
PROVIDERS: ADMIT Family Medicine; ATTEND Family Medicine
PROC: 30233N1 Transfusion of Nonautologous Red Blood Cells into Peripheral Vein, Percutaneous Approach (ICD-10-PCS; principal; 2016-08-07)
DX: N39.0 Urinary tract infection, site not specified (principal); G93.41 Metabolic encephalopathy; C79.31 Secondary malignant neoplasm of brain; C78.00 Secondary malignant neoplasm of unspecified lung; F05 Delirium due to known physiological condition; E44.0 Moderate protein-calorie malnutrition; E87.1 Hypo-osmolality and hyponatremia; D69.6 Thrombocytopenia, unspecified; E83.42 Hypomagnesemia; E86.0 Dehydration; E83.52 Hypercalcemia; I27.2 Other secondary pulmonary hypertension; C54.1 Malignant neoplasm of endometrium; B96.20 Unspecified Escherichia coli [E. coli] as the cause of diseases classified elsewhere; E83.39 Other disorders of phosphorus metabolism; E78.5 Hyperlipidemia, unspecified; E87.6 Hypokalemia; I08.1 Rheumatic disorders of both mitral and tricuspid valves; M19.90 Unspecified osteoarthritis, unspecified site; M79.7 Fibromyalgia; R10.30 Lower abdominal pain, unspecified; R74.8 Abnormal levels of other serum enzymes; H26.9 Unspecified cataract; D63.0 Anemia in neoplastic disease; G89.29 Other chronic pain; Z16.12 Extended spectrum beta lactamase (ESBL) resistance; Z87.891 Personal history of nicotine dependence; Z91.81 History of falling; Z79.899 Other long term (current) drug therapy; Z88.5 Allergy status to narcotic agent; Z88.0 Allergy status to penicillin; Z68.28 Body mass index [BMI] 28.0-28.9, adult
CPT/HCPCS: 36415; 70450; 70460; 71020; 80048; 80053; 81001; 82140; 82550; 82553; 83605; 83735; 84100; 84484; 85025; 85610; 85730; 86850; 86900; 86901; 86920; 87077; 87086; 87186; 87502; 93005; 93306; 96361; 99285